=== PATIENT | male | born 1940 | race Caucasian/White ===

== ENCOUNTER 2022-11-09 06:39 | Day surgery (SDC) | payer MEDICARE, OTHER ==
[~2022-11-09 06:39] MED LIST: Lactated Ringers 1,000 ML IV SCH; Sodium Chloride 0.9% 10 ML Syringe FLUSH PRN; Sodium Chloride 0.9% 10 ML Syringe FLUSH SCH
[2022-11-09] MEDS ORDERED: Lidocaine 1% 30 ML SDV ONE (07:05)
[2022-11-09] MEDS ORDERED: Bupivacaine 0.5%/EPINEPHrine 1:200,000 50 ML MDV ONE (07:05)
[2022-11-09] MEDS ORDERED: Ropivacaine 0.5% 5 MG/ML 30 ML SDV ONE (07:13)
[2022-11-09] MEDS ORDERED: Lidocaine 1% 2 ML ONE (07:14)
[2022-11-09] MEDS ORDERED: Dexmedetomidine 200 MCG/2 ML SDV ONE (07:16)
[2022-11-09] MEDS ORDERED: Dexamethasone 4 MG/ML 5 ML MDV ONE (07:30)
[2022-11-09 07:44] LABS: HEMOGLOBIN A1C 6.5 %
[2022-11-09] MEDS ORDERED: ceFAZolin 2 GM Vial ONE (09:10)
[2022-11-09] MEDS ORDERED: Propofol 200 MG/20 ML SDV ONE ×3 (09:10→09:50)
[2022-11-09] MEDS ORDERED: EPINEPHrine 1 MG/ML SDV ONE (09:25)
[2022-11-09] MEDS ORDERED: Lidocaine 1% 4 ML ONE (09:25)
[2022-11-09 18:15] VITALS: BP 130/74; PULSE 76
== END 2022-11-09 13:14 | disposition home or self-care (01) ==
LOC: JD.SDS 06:39
PROVIDERS: ATTEND Surgery
DX: K40.90 Unilateral inguinal hernia, without obstruction or gangrene, not specified as recurrent (principal); D17.6 Benign lipomatous neoplasm of spermatic cord; I25.10 Atherosclerotic heart disease of native coronary artery without angina pectoris; E78.2 Mixed hyperlipidemia; E11.9 Type 2 diabetes mellitus without complications; I10 Essential (primary) hypertension; I25.2 Old myocardial infarction; Z79.84 Long term (current) use of oral hypoglycemic drugs; Z79.82 Long term (current) use of aspirin; Z79.899 Other long term (current) drug therapy; Z95.5 Presence of coronary angioplasty implant and graft
CPT/HCPCS: 36415; 49505; 64425; 82947; 83036; 87641; J0171; J0690; J1100; J2704; J2795; J3490; J7120; 00830; 99100; C1781

== ENCOUNTER 2024-06-01 08:44 | Emergency (ER) | payer MEDICARE, OTHER ==
[2024-06-01 09:58] LABS: BASOPHILS PERCENT AUTO 0.4 % (0.0-1.0); EOSINOPHILS ABSOLUTE AUTO 0.2 K/mm3 (0.0-0.4); EOSINOPHILS PERCENT AUTO 2.5 % (0.0-6.0); HEMATOCRIT 44.2 % (42.0-52.0); HEMOGLOBIN 15.2 gm/dl (14.0-18.0); IMMATURE GRAN ABSOLUTE AUTO 0.02 K/mm3 (0.00-0.05); IMMATURE GRAN PERCENT AUTO 0.3 % (0.0-0.4); LYMPHOCYTES ABSOLUTE AUTO 1.8 K/mm3 (1.0-4.8); LYMPHOCYTES PERCENT AUTO 22.8 % (24.0-44.0); MEAN CORPUSCULAR HGB CONC 34.4 g/dl (32.0-36.0); MEAN CORPUSCULAR VOLUME 93.1 fl (83.0-99.0); MEAN PLATELET VOLUME 10.5 fl (9.4-12.4); MONOCYTES ABSOLUTE AUTO 0.7 K/mm3 (0.0-0.8); MONOCYTES PERCENT AUTO 8.7 % (0.0-8.0); NEUTROPHILS PERCENT AUTO 65.3 % (41.0-71.0); PLATELET COUNT,PLT 198 K/mm3 (150-400); RED BLOOD CELL COUNT 4.75 M/mm3 (4.52-5.90); WHITE BLOOD CELL COUNT,WBC 7.71 K/mm3 (3.9-11.3)
[2024-06-01 10:20] LABS: A/G RATIO 1.1 (1-2); ALANINE AMINOTRANSFERASE,ALT 58 U/L (16-63); ALBUMIN 3.4 g/dl (3.4-5.0); ALKALINE PHOSPHATASE 83 U/L (46-116); ANION GAP 13.2 (5-15); ASPARTATE AMNIOTRANSFERASE,AST 25 U/L (15-37); BILIRUBIN TOTAL 0.9 mg/dL (0.2-1.0); BLOOD UREA NITROGEN,BUN 17 mg/dL (7-18); CALCIUM 8.9 mg/dL (8.5-10.1); CARBON DIOXIDE,CO2 25 mEq/L (21-32); CHLORIDE,CL 109 mEq/L (98-107); ESTIMATED GFR 75 mL/min (>60); GLUCOSE RANDOM 135 mg/dL (70-99); MAGNESIUM 1.6 mg/dL (1.8-2.4); POTASSIUM,K 4.2 mEq/L (3.5-5.1); PROTEIN TOTAL,TP 6.6 g/dl (6.4-8.2); SODIUM,NA 143 mEq/L (136-145)
[2024-06-01 10:21] LABS: TROPONIN I HIGH SENSITIVITY < 4 pg/mL (<=76)
[2024-06-01 16:45] VITALS: BP 142/79; PULSE 60
== END 2024-06-01 13:45 | disposition home or self-care (01) ==
LOC: JD.ED 08:44
DX: R07.89 Other chest pain (principal); F32.A Depression, unspecified; E11.9 Type 2 diabetes mellitus without complications; Z79.84 Long term (current) use of oral hypoglycemic drugs; Z79.899 Other long term (current) drug therapy; Z79.82 Long term (current) use of aspirin
CPT/HCPCS: 36415; 70450; 70450-26; 71046; 71046-26; 80053; 83735; 83880; 84484; 85025; 93005; 93010; 99284; 99285